=== PATIENT | male | born 1995 | race Caucasian/White ===

== ENCOUNTER 2019-07-29 21:44 | Emergency (ER) | payer OTHER ==
[~2019-07-29] VITALS: Ht 177.8 cm; Wt 64.4 kg
== END 2019-07-29 22:47 | disposition home or self-care (01) ==
LOC: ER 21:44
DX: S61.220A Laceration with foreign body of right index finger without damage to nail, initial encounter (principal); W45.8XXA Other foreign body or object entering through skin, initial encounter; Y93.89 Activity, other specified; Y92.098 Other place in other non-institutional residence as the place of occurrence of the external cause; Y99.8 Other external cause status

== ENCOUNTER 2019-08-09 16:03 | Emergency (ER) | payer OTHER ==
[~2019-08-09] VITALS: Ht 177.8 cm; Wt 64.4 kg
== END 2019-08-09 18:23 | disposition home or self-care (01) ==
LOC: ER 16:03
DX: Z48.02 Encounter for removal of sutures (principal)